=== PATIENT | male | born 1980 | race Two or more races ===

== ENCOUNTER 2023-02-09 06:48 | Emergency (ER) | payer MEDICAID ==
[~2023-02-09] VITALS: Ht 177.8 cm; Wt 95.0 kg
[2023-02-09 06:51] VITALS: BP 140/80
== END 2023-02-09 07:33 | disposition home or self-care (01) ==
LOC: ER 07:02
DX: Z00.00 Encounter for general adult medical examination without abnormal findings (principal); F14.10 Cocaine abuse, uncomplicated
CPT/HCPCS: 99283

== ENCOUNTER 2023-02-09 09:07 | Emergency (ER) | payer MEDICAID ==
[~2023-02-09] VITALS: Ht 177.8 cm; Wt 100.0 kg
[2023-02-09] MEDS ORDERED: LORAZEPAM 1MG TABLET PO ONE (09:15)
[2023-02-09] MEDS ORDERED: SODIUM CHLORIDE 0.9% 1,000 ML IV ONE (09:45)
[2023-02-09] MEDS ORDERED: OLANZAPINE 10 MG/VIAL IM ONE (10:15)
[2023-02-09] MEDS ORDERED: LORAZEPAM 2MG/ML CPJ IM STA (10:15)
[2023-02-09] MEDS: HALOPERIDOL 5MG TABLET PO SCH ×2 (10:45→17:40)
[2023-02-09] MEDS: BENZTROPINE MESYLATE 0.5MG TABLET PO SCH ×2 (10:45→17:00)
[2023-02-09] MEDS: DIVALPROEX SODIUM 250MG DR TABLET PO SCH ×2 (11:00→21:00)
[2023-02-09 11:13] LABS: BASOPHILS % 0.2 % (0.0-2.0); HEMATOCRIT. 41.4 % (42.0-52.0); HEMOGLOBIN. 13.9 g/dL (14.0-18.0); LYMPHOCYTES % 7.8 % (20.0-50.0); MEAN CORPUSCULAR HEMOGLOBIN 28.4 pg (28.0-32.0); MEAN CORPUSCULAR VOLUME 84.6 fL (80.0-94.0); MEAN PLATELET VOLUME 8.4 fl (7.4-10.4); MONOCYTES % 5.9 % (2.0-8.0); NEUTROPHILS % 86.1 % (40.0-76.0); PLATELET 257 x1000/uL (130-400); RED CELL DISTRIBUTION WIDTH 14.2 % (11.6-14.6)
[2023-02-09 11:29] LABS: CHLORIDE 105 mEq/L (98-107)
[2023-02-09 11:31] LABS: CLARITY URINE CLOUDY (CLEAR); COLOR URINE YELLOW (YELLOW); KETONES URINE 1+ (NEGATIVE); LEUKOCYTE ESTERASE URINE NEGATIVE (NEGATIVE); NITRITE URINE NEGATIVE (NEGATIVE); OCCULT BLOOD URINE 1+ (NEGATIVE); PH URINE 5.5 (4.5-8.0); PROTEIN URINE 3+ (NEGATIVE); SPECIFIC GRAVITY URINE 1.022 (1.005-1.030)
[2023-02-09 11:46] LABS: ETHANOL BLOOD < 10 mg/dL
[2023-02-09 12:01] LABS: *AMPHETAMINES SCREEN URINE PRESUMTIVE POSITIVE (NEGATIVE); *BARBITURATES SCREEN URINE NEGATIVE (NEGATIVE); *BENZODIAZEPINES SCREEN URINE NEGATIVE (NEGATIVE); *COCAINE SCREEN URINE NEGATIVE (NEGATIVE); CANNABINOID URINE SCREEN NEGATIVE (NEGATIVE); METHADONE URINE SCREEN NEGATIVE (NEGATIVE); OPIATES URINE SCREEN NEGATIVE (NEGATIVE); PHENCYCLIDINE URINE SCREEN NEGATIVE (NEGATIVE)
[2023-02-09 20:00] VITALS: BP 131/76
== END 2023-02-10 00:17 ==
LOC: ER 09:07
DX: R45.6 Violent behavior (principal); R45.1 Restlessness and agitation; F19.10 Other psychoactive substance abuse, uncomplicated; F14.10 Cocaine abuse, uncomplicated; Z20.822 Contact with and (suspected) exposure to COVID-19
CPT/HCPCS: 36415; 80053; 80305; 80320; 81003; 85025; 87426; 96372; 99291; C9803; J1630; J2060; J3490; J7030; Z7610; G0480

== ENCOUNTER 2024-03-29 00:12 | Emergency (ER) | payer MEDICAID ==
[~2024-03-29] VITALS: Ht 175.3 cm; Wt 91.0 kg
[2024-03-29 00:23] VITALS: TEMP 97.8; O2SAT 97
[2024-03-29] MEDS ORDERED: IBUP-2029 MT (03:40)
[2024-03-29] MEDS ORDERED: BACL-141 MT (03:40)
[2024-03-29] MEDS ORDERED: IBUPROFEN 600MG TABLET PO ONE (03:45)
[2024-03-29 04:18] VITALS: BP 137/89; PULSE 94; RESP 14
== END 2024-03-29 04:18 | disposition home or self-care (01) ==
LOC: ER 00:12
DX: M79.651 Pain in right thigh (principal); F14.90 Cocaine use, unspecified, uncomplicated; F15.90 Other stimulant use, unspecified, uncomplicated
CPT/HCPCS: 99283